=== PATIENT | male | born 1975 | race Caucasian/White ===

== ENCOUNTER 2024-07-27 08:22 | Day surgery (SDC) | payer OTHER, SELFPAY ==
[2024-05-30 10:00] VITALS: BMI 32.1
[2024-07-27 09:37] VITALS: BP 160/94; PULSE 52; RESP 18; TEMP 36.8; O2SAT 98
[2024-07-27] MEDS: LACTATED RINGERS 1,000 ML 150 ML IV CONT (09:38)
--- NOTE | 2024-07-27 09:59 | PM.HPGS ---
History of Present Illness History of Present Illness Consent: Risks, benefits, and alternatives have been discussed and questions answered. Patient agrees to proceed with procedure. Chief complaint: Neoplasm Screening Narrative: Tanner Tran is a 48 year old male presents for screening colonoscopy. Patient's current weight appetite and bowel movements are normal. Patient denies abdominal pain. He has had no bleeding. Family history noncontributory. Review of Systems Review of Systems: All systems reviewed & are unremarkable except as noted in HPI and below PMFSH Social History Social History Smoking status: Former smoker Additional smoking assessment comments: quit 15 years ago Alcohol intake: current Drinks per week: 2 Substance use type: does not use Living arrangements: with family Meds Home Medications and Allergies Home Medications Medication Instructions Recorded Confirmed Type allopurinol 300 mg tablet 300 mg PO DAILY 06/12/24 07/27/24 History buspirone 5 mg tablet 5 mg PO BID 06/12/24 07/27/24 History Allergies Allergy/AdvReac Type Severity Reaction Status Date / Time No Known Allergies Allergy Verified 07/27/24 09:35 Vital Signs Vital Signs - 24 hr 07/27/24 09:37 Temperature 98.2 F Pulse Rate 52 L Respiratory Rate 18 Blood Pressure 160/94 H Pulse Oximetry 98 Oxygen Delivery Room Air Exam Narrative: Physical exam reveals patient to be alert. Vital signs stable. HEENT exam is unremarkable. Patient is anicteric. Lungs are clear to auscultation and to percussion. His without murmur or extra sounds. Abdomen bowel sounds are present soft nontender with no organomegaly. Digital external rectal exam normal. Assessment and Plan Assessment and plan (1) Screen for colon cancer: Code(s): Z12.11 - Encounter for screening for malignant neoplasm of colon Status: Acute Assessment and Plan: Patient presents today for neoplasia screening colonoscopy. Further recommendations may be given after endoscopy.
--- NOTE | 2024-07-27 10:03 | P.PNAN_ITS ---
Anes - Initial Pre Proc Eval Procedure: Operation Date: 07/27/24 10:30 Proposed Procedures p Screening Colonoscopy - Rene Roman MD Date/Time: 07/27/24 10:03 Surgeon: Rene Roman MD Pre Op Diagnosis: Neoplasm Screening Patient Data Age: 48 Gender: M Height: 1.91 m Weight: 116.75 kg Last Vital Signs Temp 36.8 C 07/27/24 09:37 Pulse 52 L 07/27/24 09:37 Resp 18 07/27/24 09:37 BP 160/94 H 07/27/24 09:37 Pulse Ox 98 07/27/24 09:37 O2 Del Method Room Air 07/27/24 09:37 Allergies Allergy/AdvReac Type Severity Reaction Status Date / Time No Known Allergies Allergy Verified 07/27/24 09:35 Home Medications Medication Instructions Recorded Confirmed Type allopurinol 300 mg tablet 300 mg PO DAILY 06/12/24 07/27/24 History buspirone 5 mg tablet 5 mg PO BID 06/12/24 07/27/24 History Patient hx anesthesia problems: none Family hx anesthesia problems: none Results Review: All pre-operative results and documents have been reviewed as part of the pre- operative evaluation. PMFSH Past Medical History Medical History (Updated 07/27/24 @ 10:04 by Mik Goldsmith MD) Gout Obesity Social History Social History Smoking status: Former smoker Additional smoking assessment comments: quit 15 years ago Alcohol intake: current Drinks per week: 2 Substance use type: does not use Living arrangements: with family Anes - Eval Final PreProcedure Day of Procedure 07/27/24 10:03 Patient weight: obese Heart: regular rate and rhythm Lungs: clear to auscultation Airway: Mallampati scale class II Neurological: alert and oriented Last oral intake: >/= 8 hours ASA classification: II Emergent: no Anesthetic plan: proceed Anesthesia type and monitoring: general GIVS and standard monitoring Results Review: All pre-operative results and documents have been reviewed as part of the pre- operative evaluation. Informed Consent: The patient's anesthetic plan and its attendant risks and benefits were discussed with the patient/family/POA. Questions were solicited and answers provided to the satisfaction of the patient/family/POA.
[2024-07-27 10:24] VITALS: BP 129/73; PULSE 49; RESP 20; O2SAT 95
--- NOTE | 2024-07-27 10:32 | WPDANESPN ---
Anes - Prog Note Post-Op Date/Time: 07/27/24 10:32 Cardiovascular status: normal Respiratory status: normal Airway patency: baseline Mental status: baseline Post-Op hydration status: normal Vital Signs: Last Vital Signs Temp 36.8 C 07/27/24 09:37 Pulse 52 L 07/27/24 09:37 Resp 18 07/27/24 09:37 BP 160/94 H 07/27/24 09:37 Pulse Ox 98 07/27/24 09:37 O2 Del Method Room Air 07/27/24 09:37 Pain Score (VAS): 0/10 I/O: Intake & Output 07/26/24 07/27/24 07/27/24 23:59 07:59 15:59 Intake Total 500 Balance 500 Patient Feedback: Patient satisfied with anesthetic care.
[2024-07-27 10:34] VITALS: BP 131/67; PULSE 49; RESP 18; O2SAT 98
[2024-07-27 10:44] VITALS: BP 138/76; PULSE 49; RESP 16; O2SAT 97
== END 2024-07-27 10:58 | disposition home or self-care (01) ==
PROVIDERS: PCP Physician Assistant; Visit Provider Internal Medicine Gastroenterology
PROC: 0DJD8ZZ Inspection of Lower Intestinal Tract, Via Natural or Artificial Opening Endoscopic (ICD-10-PCS; CPT 45378; principal; 2024-07-27 10:30)
DX: Z12.11 Encounter for screening for malignant neoplasm of colon (principal); D12.5 Benign neoplasm of sigmoid colon; K57.30 Diverticulosis of large intestine without perforation or abscess without bleeding; K64.8 Other hemorrhoids
CPT/HCPCS: 45385